=== PATIENT | male | born 1970 | race African-American/Black ===

== ENCOUNTER 2019-03-17 14:43 | Emergency (ER) | payer OTHER ==
[~2019-03-17] VITALS: Ht 175.3 cm; Wt 63.5 kg
[~2019-03-17 14:43] MED LIST: ALBUTEROL SULF8.5 GM INH; ALBUTEROL2.5 MG/3 M INH; AZITHROMYCIN250 MG ORAL; AZITHROMYCIN250 MG PO; BACTRIM DS TAB1 EAC1 ORAL; CHERATUSSIN AC118 ML PO; DOXYCYCLINE HY100 M6 PO; GUAIFENESIN-DM S5 ML PO; IBUPROFEN600 MG ORAL; KEFLEX500 MG ORAL; LEVAQUIN500 MG ORAL; LEVOFLOXACIN500 MG ORAL; NORCO 10-325 T1 EACH ORAL; NORCO 5/3251 TAB PO; NORVIR100 MG PO; PHENERGAN6.25 MG/5 ORAL; PREDNISONE20 MG ORAL; PREDNISONE20 MG PO; ROBITUSSIN DM5 ML ORAL; TESSALON PERLE100 MG ORAL; VICODIN 5-5001 EACH PO; VIREAD300 MG PO; ZIAGEN300 MG PO; ZITHROMAX250 MG ORAL; [UNRECOGNIZED DRUG - OTHER] PO; nebulizer machine
[2019-03-17] MEDS ORDERED: NKM (14:55)
[2019-03-17] MEDS ORDERED: Dexamethasone 4mg/ml vial IVP ONE (15:00)
--- NOTE | 2019-03-17 15:00 | NUR ---
ED Nurse Note: Patient walked in to ER, complaining of severe back pain and shortness of breath. Patient is alert and oriented and able to make needs known. No grimacing noted. No guarding noted. Patient stated that has not taken any medication for pain. he also stated that he is not compliant of taking his other prescription meds.
--- NOTE | 2019-03-17 15:13 | Emergency Room Report ---
History of Present Illness General Chief Complaint: Dyspnea/Respdistress Source: Patient Present Illness HPI 48-year-old male history of HIV CD4 count less than 200 presents with dyspnea, cough x3 weeks, no fever no chills, no chest pain, he endorses back pain with coughing, no nausea vomiting, he endorses some sputum production no aggravating relieving factors severity is moderate, symptoms are intermittent, patient intermittently takes his HIV medication. Allergies: Coded Allergies: No Known Allergies (Unverified , 03/17/19) Patient History Past Medical History: see triage record Reviewed Nursing Documentation: PMH: Agreed; PSxH: Agreed Nursing Documentation-PMH Hx Asthma: Yes Review of Systems All Other Systems: negative except mentioned in HPI Physical Exam Vital Signs Date Time Temp Pulse Resp B/P (MAP) Pulse Ox O2 Delivery O2 Flow Rate FiO2 03/17/19 14:52 97.9 84 20 117/78 (91) 96 Room Air Sp02 EP Interpretation: reviewed, normal General Appearance: well appearing, no apparent distress, alert Head: normocephalic, atraumatic Eyes: bilateral eye PERRL, bilateral eye EOMI ENT: uvula midline, moist mucus membranes Neck: supple, thyroid normal, supple/symm/no masses Respiratory: lungs clear, no respiratory distress, no accessory muscle use, rhonchi Cardiovascular #1: normal peripheral pulses, regular rate, rhythm, no edema, no gallop, no murmur Gastrointestinal: non tender, soft, no guarding, no rebound Musculoskeletal: normal inspection Neurologic: alert, oriented x3 Psychiatric: mood/affect normal Skin: no rash, warm/dry Medical Decision Making Diagnostic Impression: Primary Impression: Bronchitis Additional Impression: Asthma exacerbation Qualified Codes: J45.901 - Unspecified asthma with (acute) exacerbation ER Course 48-year-old male presents with dyspnea, shortness of breath, patient with rhonchi on exam, possible bronchitis, versus asthma exacerbation versus COPD exacerbation Patient given DuoNeb steroids, with significant improvement, patient feels better Reevaluation 4:28 PM, will disposition patient home with return precautions Laboratory Tests Test 03/17/19 15:20 03/17/19 15:28 White Blood Count 4.9 K/UL (4.8-10.8) Red Blood Count 4.06 M/UL (4.70-6.10) L Hemoglobin 11.9 G/DL (14.2-18.0) L Hematocrit 35.7 % (42.0-52.0) L Mean Corpuscular Volume 88 FL (80-99) Mean Corpuscular Hemoglobin 29.3 PG (27.0-31.0) Mean Corpuscular Hemoglobin Concent 33.3 G/DL (32.0-36.0) Red Cell Distribution Width 12.4 % (11.6-14.8) Platelet Count 278 K/UL (150-450) Mean Platelet Volume 5.3 FL (6.5-10.1) L Neutrophils (%) (Auto) 55.2 % (45.0-75.0) Lymphocytes (%) (Auto) 14.5 % (20.0-45.0) L Monocytes (%) (Auto) 11.7 % (1.0-10.0) H Eosinophils (%) (Auto) 15.4 % (0.0-3.0) H Basophils (%) (Auto) 3.2 % (0.0-2.0) H Sodium Level 138 MMOL/L (136-145) Potassium Level 4.2 MMOL/L (3.5-5.1) Chloride Level 105 MMOL/L (98-107) Carbon Dioxide Level 25 MMOL/L (21-32) Anion Gap 8 mmol/L (5-15) Blood Urea Nitrogen 13 mg/dL (7-18) Creatinine 0.9 MG/DL (0.55-1.30) Estimate Glomerular Filtration Rate > 60 mL/min (>60) Glucose Level 82 MG/DL (74-106) Calcium Level 8.3 MG/DL (8.5-10.1) L Total Bilirubin 0.4 MG/DL (0.2-1.0) Aspartate Amino Transferase (AST) 23 U/L (15-37) Alanine Aminotransferase (ALT) 17 U/L (12-78) Alkaline Phosphatase 121 U/L (46-116) H Lactate Dehydrogenase 242 U/L (81-234) H Troponin I 0.000 ng/mL (0.000-0.056) Pro-B-Type Natriuretic Peptide 83 pg/mL (0-125) Total Protein 7.8 G/DL (6.4-8.2) Albumin 2.3 G/DL (3.4-5.0) L Globulin 5.5 g/dL Albumin/Globulin Ratio 0.4 (1.0-2.7) L Lipase 93 U/L (73-393) Arterial Blood pH 7.420 (7.350-7.450) Arterial Blood Partial Pressure CO2 34.6 mmHg (35.0-45.0) L Arterial Blood Partial Pressure O2 133.3 mmHg (75.0-100.0) H Arterial Blood HCO3 22.2 mmol/L (22.0-26.0) Arterial Blood Oxygen Saturation 98.4 % (95-100) Arterial Blood Base Excess -1.6 (-2-2) Fabrizio Test Positive EKG Diagnostic Results EKG Time: 15:04 EP Interpretation: , Rate 74, QTc 430, no acute ST elevations, normal axis Rhythm Strip Diag. Results Rhythm Strip Time: 16:29 EP Interpretation: yes Rate: 85 Rhythm: NSR, no PVC's Chest X-Ray Diagnostic Results Chest X-Ray Diagnostic Results : Chest X-Ray Ordered: Yes # of Views/Limited/Complete: 1 View Indication: Shortness of Breath EP Interpretation: Yes Interpretation: no consolidation, no effusion, no pneumothorax, no acute cardiopulmonary disease Impression: No acute disease Electronically Signed by: Sudhir Cordero MD Last Vital Signs Date Time Temp Pulse Resp B/P (MAP) Pulse Ox O2 Delivery O2 Flow Rate FiO2 03/17/19 14:52 97.9 84 20 117/78 (91) 96 Room Air Disposition: HOME, SELF-CARE Condition: Stable Scripts Naproxen* (NAPROSYN*) 250 Mg Tablet 250 MG ORAL BID PRN for For Pain, #20 TAB 0 Refills Prov: Sudhir Cordero MD 03/17/19 Prednisone* (PREDNISONE*) 20 Mg Tablet 40 MG ORAL DAILY, #8 TAB Prov: Sudhir Cordero MD 03/17/19 Albuterol Sulfate* (ALBUTEROL SULFATE MDI*) 8.5 Gm Hfa.aer.ad 2 PUFF INH Q4H PRN for cough/wheezing, #1 EA 0 Refills Prov: Sudhir Cordero MD 03/17/19 Referrals: [facility] Patient Instructions: Acute Bronchitis, [id number], Chronic Obstructive Pulmonary Disease Exacerbation, Shortness of Breath, [id number] Additional Instructions: The patient was provided with discharge instructions, notified to follow-up with a primary care doctor and or specialist in the next 24-48 hours, and to return to the ED if they have worsening of their symptoms. Please note that this report is being documented using DRAGON technology. This can lead to erroneous entry secondary to incorrect interpretation by the dictating instrument. Sudhir Cordero MD Mar 17, 2019 15:13
[2019-03-17] MEDS ORDERED: Bactrim SS Tab ORAL ONE (15:15)
[2019-03-17 15:30] VITALS: BP 115/74
--- NOTE | 2019-03-17 15:35 | Diagnostic Imaging Report ---
Indication: Dyspnea Comparison: 04/15/2015 A single view chest radiograph was obtained. Findings: Cardiomediastinal appearance is within normal limits for age. The lungs are clear. Pulmonary vascularity is appropriate. The diaphragmatic contour is smooth and costophrenic angles are sharp. No pleural effusions are identified. The bones are unremarkable. Impression: No acute findings
[2019-03-17 15:39] LABS: BASOPHILS % (AUTO) 3.2 % (0.0-2.0); EOSINOPHILS % (AUTO) 15.4 % (0.0-3.0); HEMATOCRIT 35.7 % (42.0-52.0); HEMOGLOBIN 11.9 G/DL (14.2-18.0); LYMPHOCYTES % (AUTO) 14.5 % (20.0-45.0); MEAN CORPUSCULAR VOLUME 88 FL (80-99); MONOCYTES % (AUTO) 11.7 % (1.0-10.0); NEUTROPHILS % (AUTO) 55.2 % (45.0-75.0); PLATELET COUNT 278 K/UL (150-450); RED BLOOD COUNT 4.06 M/UL (4.70-6.10); RED CELL DISTRIBUTION WIDTH 12.4 % (11.6-14.8); WHITE BLOOD COUNT 4.9 K/UL (4.8-10.8)
[2019-03-17] MEDS: Ipratropium 0.02% Inh Soln 2.5ml UD HHN SCH ×3 (16:01→16:26)
[2019-03-17] MEDS: Albuterol ud Inhalation HHN SCH ×2 (16:02→16:26)
[2019-03-17 16:04] LABS: ANION GAP 8 mmol/L (5-15); BLOOD UREA NITROGEN 13 mg/dL (7-18); CALCIUM 8.3 MG/DL (8.5-10.1); CARBON DIOXIDE 25 MMOL/L (21-32); CHLORIDE 105 MMOL/L (98-107); CREATININE 0.9 MG/DL (0.55-1.30); POTASSIUM 4.2 MMOL/L (3.5-5.1); SODIUM 138 MMOL/L (136-145)
[2019-03-17 16:14] LABS: ALANINE AMINOTRANSFERASE 17 U/L (12-78); ALBUMIN 2.3 G/DL (3.4-5.0); ALBUMIN/GLOBULIN RATIO 0.4 (1.0-2.7); ALKALINE PHOSPHATASE 121 U/L (46-116); ASPARTATE AMINO TRANSFERASE 23 U/L (15-37); BILIRUBIN,TOTAL 0.4 MG/DL (0.2-1.0)
[2019-03-17] MEDS ORDERED: NAPROXEN250 MG ORAL (16:30)
[2019-03-17] MEDS ORDERED: oxyCODONE HCL/Acetaminophen 5/325mg ORAL ONE (16:30)
[2019-03-17] MEDS ORDERED: Naproxen 500mg tab ORAL ONE (16:30)
[2019-03-17] MEDS ORDERED: ALBUTEROL SULF8.5 GM INH (16:30)
[2019-03-17] MEDS ORDERED: PREDNISONE20 MG ORAL (16:30)
[2019-03-17 16:52] VITALS: BP 129/78
--- NOTE | 2019-03-17 17:10 | NUR ---
ER DISCHARGE NOTE: Patient is cleared to be discharged per ERMD, pt is aox4, on room air, with stable vital signs. pt was given dc and prescription instructions, pt was able to verbalize understanding, pt id band and iv site removed without complications. pt is able to ambulate with steady gait. pt took all belongings.
--- NOTE | 2019-03-19 17:35 | Cardiology Report ---
APPROVED REPORT EKG Measurement Heart [id number] MI [id number] Normal sinus rhythm Normal ECG
== END 2019-03-17 17:11 | disposition home or self-care (01) ==
LOC: EMR 15:10
DX: J40 Bronchitis, not specified as acute or chronic (principal); J45.901 Unspecified asthma with (acute) exacerbation; B20 Human immunodeficiency virus [HIV] disease
CPT/HCPCS: 36415; 36600; 71045; 80053; 82803; 83615; 83690; 83880; 84484; 85025; 93005; 94640; 96361; 96374; J1100; Z7502; 99284